=== PATIENT | female | born 1950 | race African-American/Black ===

== ENCOUNTER → 2020-05-27 | Outpatient (CLI) | payer MEDICARE, MEDICAID ==
--- NOTE | 2020-05-27 19:03 | XCELERA REPORT ---
[address] [address] Transthoracic Echocardiogram Report Name: IRA LORD Age: 70 yrs Gender: Female : 1950 Patient Status: Outpatient Patient Location: Study Date: 05/27/2020 10:18 AM Height: 68 in Weight: 181 lb BSA: 2.0 m2 Reason For Study: MURMUR Ordering Physician: TOMASZ HERNANDEZ Performed By: Tony Camacho Interpretation Summary Minimal posterior pericardial effusion.. Normal aortic root, but calcified. AV valve configuration 3 cusps, normal, with no and no AR. Mild mitral annular calcification. No MS, No MVP. Mild MR with NO left atrial enlargement (ONESIMO 21.4).. Probable mild LVH (PLAX not standard to allow thickness measurement), normal LVEF (visual 70%), with LVDD-I. Segmental regional wall motion abnormality seen as mid ventricular cavitary obstruction, basal inferior and basal anterior wall hypokinesis. No LV enlargement . Tricuspid valve is normal, mild TV regurgitation., trace FL. RA and RV normal size. RVSP is 27 mm Hg. No ASD. Summary = Mild calcified aortic root. Normal AV. Mild MR with no MS, no LA enlargement. No LVH , normal LVEF (70%) and size, with mild LV Diastolic Dysfunction by doppler. Mild regional wall motion abnormality as basal inferior wall and basal anterior hypokinesis. Normal R heart, NO pulm. HTN, RVSP22. Mild MR and TR mild and normal RVSP, NO pulm. hypertension . Dr Aureliano Jimenez. MMode/2D Measurements & Calculations RVDd: 3.0 cm LVIDd: 3.8 cm FS: 29.9 % Ao root diam: 2.8 cm IVSd: 0.99 cm LVIDs: 2.7 cm EDV(Teich): Ao root area: LVPWd: 0.87 cm 63.3 ml ESV(Teich): 6.1 cm2 26.7 ml LA dimension: 3.4 cm EF(Teich): 57.8 % LVLd ap4: 7.4 cm SV(MOD-sp4): EDV(MOD-sp4): 29.0 ml 46.0 ml LVLs ap4: 6.4 cm ESV(MOD-sp4): 17.0 ml EF(MOD-sp4): 63.0 % Doppler Measurements & Calculations MV E max tank: MV P1/2t max tank: Ao V2 max: LV V1 max P.0 cm/sec 96.8 cm/sec 176.2 cm/sec 7.9 mmHg MV A max tank: MV P1/2t: 85.9 msec Ao max PG: LV V1 max: 89.1 cm/sec 12.4 mmHg 140.7 cm/sec MV E/A: 1.1 MVA(P1/2t): 2.6 cm2 LV dP/dt: MV dec slope: 1818 mmHg/s 329.9 cm/sec2 MV dec time: 0.22 sec PA V2 max: PI end-d tank: TR max tank: MV P1/2t-pr_phl: 79.1 cm/sec 58.2 cm/sec 244.3 cm/sec 85.9 msec PA max PG: TR max P.5 mmHg 23.9 mmHg I WMSI = 1.13 % Normal = 88 Segments Size X - Cannot 1 - Normal 2 - 3 - Akinetic4 - 1-2 small Interpret Hypokinetic Dyskinetic 3-5 moderate 5 - 6-14 large Aneurysmal 15-16 diffuse : TOMASZ HERNANDEZ Andre
== END ==
LOC: SP 09:50
PROVIDERS: ATTEND Physician Assistant
DX: R01.1 Cardiac murmur, unspecified (principal)
CPT/HCPCS: 93306